=== PATIENT | female | born 1985 | race Caucasian/White ===

== ENCOUNTER 2017-02-07 12:59 | Emergency (ER) | payer OTHER ==
[2017-02-07 13:12] VITALS: BP 131/87
== END 2017-02-07 15:00 | disposition home or self-care (01) ==
LOC: ED 12:59
DX: N39.0 Urinary tract infection, site not specified (principal)
CPT/HCPCS: Q0092

== ENCOUNTER 2017-10-02 19:17 | Emergency (ER) | payer OTHER ==
[~2017-10-02] VITALS: Ht 162.6 cm; Wt 73.9 kg
[2017-10-02 20:55] LABS: microscopic required? NO
[2017-10-02 21:01] LABS: BASOPHIL % 0.7 % (0-2); PLATELET COUNT 308 x10^3mcL (130-400)
[2017-10-02 21:02] LABS: RED CELL DISTRIBUTION WIDTH 14.7 % (11.5-14.5)
[2017-10-02 21:06] LABS: UA SPECIFIC GRAVITY >=1.030 (1.005-1.035); urine erythrocyte NEGATIVE (NEGATIVE)
[2017-10-02 21:11] LABS: CALCIUM 8.8 mg/dL (8.5-10.1); CARBON DIOXIDE 28.5 mmol/L (21-32); CHLORIDE SERUM 105 mmol/L (98-107); CREATININE SERUM 0.7 mg/dL (0.6-1.0); GFR1 > 60 mL/min; GLUCOSE SERUM 112 mg/dL (74-106); SODIUM SERUM 140 mmol/L (136-145)
[2017-10-02 21:16] LABS: ALKALINE PHOSPHATASE 63 U/L (46-116); ALT/SGPT 22 U/L (14-59); AMYLASE 82 U/L (25-115); AST/SGOT 17 U/L (15-37); BILIRUBIN TOTAL 0.23 mg/dL (0.20-1.00); LIPASE 292 IU/L (73-393); TOTAL PROTEIN, SERUM 7.3 g/dL (6.4-8.2)
[2017-10-02 21:21] LABS: ALBUMIN 3.3 g/dL (3.4-5.0)
[2017-10-02 23:58] VITALS: BP 117/66
== END 2017-10-02 23:45 | disposition home or self-care (01) ==
LOC: ED 19:17
PROVIDERS: Emergency Medicine
DX: O02.0 Blighted ovum and nonhydatidiform mole (principal); O26.891 Other specified pregnancy related conditions, first trimester; R11.2 Nausea with vomiting, unspecified; R19.7 Diarrhea, unspecified; A08.4 Viral intestinal infection, unspecified; Z3A.01 Less than 8 weeks gestation of pregnancy
CPT/HCPCS: 83880; J7030

== ENCOUNTER 2017-10-31 18:53 | Emergency (ER) | payer OTHER ==
[2017-11-01 02:32] VITALS: BP 106/64
== END 2017-11-01 02:32 | disposition home or self-care (01) ==
LOC: ED 18:53
DX: O23.41 Unspecified infection of urinary tract in pregnancy, first trimester (principal); Z3A.09 9 weeks gestation of pregnancy

== ENCOUNTER 2018-06-05 06:49 | Emergency (ER) | payer OTHER ==
[~2018-06-05] VITALS: Ht 160 cm; Wt 85.7 kg
[2018-06-05 06:54] VITALS: Ht 160 cm; Wt 85.7 kg
[2018-06-05 09:46] VITALS: BP 128/86
== END 2018-06-05 10:15 | disposition home or self-care (01) ==
LOC: ED 06:49
DX: O90.89 Other complications of the puerperium, not elsewhere classified (principal); K59.00 Constipation, unspecified

== ENCOUNTER 2018-11-10 10:42 | Emergency (ER) | payer MEDICAID ==
[~2018-11-10] VITALS: Ht 160 cm; Wt 78.0 kg
[2018-11-10 10:54] VITALS: Ht 160 cm; Wt 78.0 kg
[2018-11-10 13:00] VITALS: BP 127/74
== END 2018-11-10 13:00 | disposition home or self-care (01) ==
LOC: ED 10:42
DX: N39.0 Urinary tract infection, site not specified (principal); Z98.890 Other specified postprocedural states
CPT/HCPCS: 87491; 87591; J0696

== ENCOUNTER 2019-07-16 21:02 | Emergency (ER) | payer BC ==
[~2019-07-16] VITALS: Ht 160 cm; Wt 79.4 kg
[2019-07-16 21:36] VITALS: Ht 160 cm; Wt 79.4 kg
[2019-07-17 00:35] LABS: BASOPHIL % 0.5 % (0-2); PLATELET COUNT 329 x10^3mcL (130-400)
[2019-07-17 00:37] LABS: RED CELL DISTRIBUTION WIDTH 18.1 % (11.5-14.5)
[2019-07-17 01:50] VITALS: BP 133/85
== END 2019-07-17 01:50 | disposition home or self-care (01) ==
LOC: ED 21:02
PROVIDERS: Emergency Medicine
DX: O20.0 Threatened abortion (principal); Z3A.12 12 weeks gestation of pregnancy
CPT/HCPCS: 36415; J7030

== ENCOUNTER 2019-10-07 17:59 | Emergency (ER) | payer MEDICAID ==
[~2019-10-07] VITALS: Ht 162.6 cm; Wt 78.1 kg
[2019-10-07 18:53] VITALS: BP 132/77; Ht 162.6 cm; Wt 78.1 kg
== END 2019-10-07 21:18 | disposition left against medical advice (07) ==
LOC: ED 17:59
DX: Z53.21 Procedure and treatment not carried out due to patient leaving prior to being seen by health care provider (principal)

== ENCOUNTER 2019-10-20 13:37 | Emergency (ER) | payer MEDICAID ==
[~2019-10-20] VITALS: Ht 160 cm; Wt 79.8 kg
[2019-10-20 13:51] VITALS: Ht 160 cm; Wt 79.8 kg
[2019-10-20 17:00] VITALS: BP 118/56
== END 2019-10-20 17:00 | disposition home or self-care (01) ==
LOC: ED 13:37
DX: S13.4XXA Sprain of ligaments of cervical spine, initial encounter (principal); M54.5 Low back pain; R51 Headache; R20.2 Paresthesia of skin; Z98.890 Other specified postprocedural states; V43.52XA Car driver injured in collision with other type car in traffic accident, initial encounter; Y93.I9 Activity, other involving external motion; Y92.488 Other paved roadways as the place of occurrence of the external cause; Y99.8 Other external cause status

== ENCOUNTER 2020-12-14 16:45 | Emergency (ER) | payer MEDICAID, SELFPAY ==
[~2020-12-14] VITALS: Ht 152.4 cm; Wt 70.3 kg
[2020-12-14 16:47] VITALS: BP 114/74; Ht 152.4 cm; Wt 70.3 kg
== END 2020-12-14 17:15 | disposition left against medical advice (07) ==
LOC: ED 16:45
DX: Z53.21 Procedure and treatment not carried out due to patient leaving prior to being seen by health care provider (principal)